=== PATIENT | female | born 1960 | race Two or more races ===

== ENCOUNTER 2020-07-28 11:20 | Emergency (ER) | payer OTHER ==
[~2020-07-28] VITALS: Ht 160 cm; Wt 116.1 kg
--- NOTE | 2020-07-28 12:01 | NUR ---
PATIENT CAME TO ER BED #4 FOR LOWER BACK/FLANK PAIN X 2 MONTHS. PATIENT DENIES DYSURIA, DENIES INJURY. THE PATIENT DENIES SOB. IN ROOM AIR AND RESPIRATION REGULAR AND UNLABORED. THE PATIENT IS CONNECTED TO A MONITOR.
[2020-07-28] MEDS ORDERED: KETOROLAC TROMETHAMINE INJ 30 MG/ML VIAL ONE (12:35)
--- NOTE | 2020-07-28 12:39 | NUR ---
PATIENT CAME BACK FROM CT.
[2020-07-28] MEDS ORDERED: KETOROLAC TROMETHAMINE INJ 60 MG/2 ML VIAL IM ONE (13:00)
[2020-07-28] MEDS ORDERED: NAPR500T6 PO (13:23)
[2020-07-28 13:40] VITALS: BP 126/71
--- NOTE | 2020-07-28 13:40 | NUR ---
Patient discharged to home in stable condition. Written and verbal after care instructions given. Patient verbalizes understanding of instruction.
== END 2020-07-28 13:40 | disposition home or self-care (01) ==
LOC: ER 11:37
DX: M54.5 Low back pain (principal); R10.9 Unspecified abdominal pain; E11.9 Type 2 diabetes mellitus without complications; Z98.890 Other specified postprocedural states; Z79.899 Other long term (current) drug therapy
CPT/HCPCS: 72131; 96372; 99284; J1885

== ENCOUNTER 2020-11-13 15:16 | Emergency (ER) | payer OTHER ==
[~2020-11-13] VITALS: Ht 152.4 cm; Wt 99.8 kg
[~2020-11-13 15:16] MED LIST: NAPR500T6 PO
[2020-11-13 15:37] VITALS: BP 140/81
[2020-11-13] MEDS ORDERED: IBUPROFEN 600 MG TABLET PO ONE (16:00)
[2020-11-13] MEDS ORDERED: IBUPROFEN 600 MG TABLET ONE (16:06)
[2020-11-13] MEDS ORDERED: TRAM50TA2 PO (17:29)
[2020-11-13] MEDS ORDERED: NAPR500T6 PO (17:29)
== END 2020-11-13 18:03 | disposition home or self-care (01) ==
LOC: ER 15:21
DX: M25.561 Pain in right knee (principal); E11.9 Type 2 diabetes mellitus without complications; E66.8 Other obesity; Z68.41 Body mass index [BMI] 40.0-44.9, adult; Z96.652 Presence of left artificial knee joint; Z98.890 Other specified postprocedural states; Z79.899 Other long term (current) drug therapy
CPT/HCPCS: 73564-TC

== ENCOUNTER 2021-04-28 09:04 | Emergency (ER) | payer OTHER ==
[~2021-04-28] VITALS: Ht 154.9 cm; Wt 108.9 kg
[~2021-04-28 09:04] MED LIST changes: +TRAM50TA2 PO
--- NOTE | 2021-04-28 09:06 | NUR ---
PT C/O R LEG PAIN X1 DAY. PT DENIES FALLING. PT IS A&OX4 AND VITAL SIGNS WITHIN NORMAL LIMITS.
[2021-04-28] MEDS ORDERED: KETOROLAC TROMETHAMINE INJ 30 MG/ML VIAL ONE (10:27)
[2021-04-28] MEDS ORDERED: KETOROLAC TROMETHAMINE INJ 30 MG/ML VIAL IM ONE (10:30)
[2021-04-28] MEDS ORDERED: HYDR-3976 GT (10:33)
[2021-04-28] MEDS ORDERED: HYDR-3972 PO (10:36)
[2021-04-28 10:54] VITALS: BP 121/71
--- NOTE | 2021-04-28 10:54 | NUR ---
Patient discharged to home in stable condition. Written and verbal after care instructions given. Patient verbalizes understanding of instruction.
== END 2021-04-28 10:54 | disposition home or self-care (01) ==
LOC: ER 09:07
DX: M17.11 Unilateral primary osteoarthritis, right knee (principal); E11.9 Type 2 diabetes mellitus without complications; Z98.890 Other specified postprocedural states
CPT/HCPCS: 73564; 96372; 99283; J1885

== ENCOUNTER 2021-08-16 15:02 | Emergency (ER) | payer OTHER ==
[~2021-08-16] VITALS: Ht 160 cm; Wt 113.4 kg
[~2021-08-16 15:02] MED LIST changes: +HYDR-3972 PO; -TRAM50TA2 PO
--- NOTE | 2021-08-16 15:16 | NUR ---
BIB SELF C/O L BREAST NUMBNESS ON AND OFF FOR 1 YEAR "ITS LIKE PULSATING". IN ROOM AIR AND DENIES SOB. RESPIRATION REGULAR AND UNLABORED. WILL CONTINUE TO MONITOR THE PATIENT.
[2021-08-16 15:56] LABS: BASOPHILS # (AUTO) 0.1 K/uL (0.0-0.2); BASOPHILS % (AUTO) 1.1 % (0.0-2.0); EOSINOPHILS % (AUTO) 3.8 % (0.0-6.0); HEMATOCRIT 44 % (33-45); HEMOGLOBIN 14.4 g/dL (11.5-14.8); LYMPHOCYTES # (AUTO) 1.8 K/uL (0.8-4.8); LYMPHOCYTES % (AUTO) 30.6 % (20.0-44.0); MEAN CORPUSCULAR HGB CONC 33 g/dl (31.0-36.0); MEAN CORPUSCULAR VOLUME 87 fL (82-100); MONOCYTES # (AUTO) 0.5 K/uL (0.1-1.30); MONOCYTES % (AUTO) 7.9 % (2.0-12.0); NEUTROPHILS # (AUTO) 3.2 K/uL (1.8-8.9); NEUTROPHILS % (AUTO) 56.6 % (43.0-81.0); PLATELET COUNT (AUTO) 247 K/uL (150-450); RED BLOOD CELL COUNT(AUTO) 5.01 MIL/uL (4.0-5.2); WHITE BLOOD COUNT (AUTO) 5.7 K/uL (4.3-11.0)
[2021-08-16 16:12] LABS: ALBUMIN 3.6 g/dL (3.4-5.0); BILIRUBIN,TOTAL 0.2 mg/dL (0.2-1.0); CALCIUM, SERUM 9.6 mg/dL (8.5-10.1); CREATININE 0.8 mg/dL (0.6-1.3); POTASSIUM 4.1 mmol/L (3.5-5.1); TOTAL PROTEIN, SERUM 7.3 g/dL (6.4-8.2)
--- NOTE | 2021-08-16 18:31 | NUR ---
GENERATOR ASSEMBLER AT BEDSIDE FOR BLOOD DRAW
--- NOTE | 2021-08-16 19:15 | NUR ---
REPORT GIVEN TO NURSE OATES FOR JESSE
--- NOTE | 2021-08-16 20:20 | NUR ---
Patient discharged to home in stable condition. Written and verbal after care instructions given. Patient verbalizes understanding of instruction. PT ambulatory with a steady gait
[2021-08-16 20:21] VITALS: BP 140/71
== END 2021-08-16 20:21 | disposition home or self-care (01) ==
LOC: ER 15:12
DX: N64.4 Mastodynia (principal); E11.9 Type 2 diabetes mellitus without complications; Z98.890 Other specified postprocedural states
CPT/HCPCS: 36415; 71045-TC; 80053-TC; 84484-TC; 85025-TC

== ENCOUNTER 2021-09-11 06:36 | Emergency (ER) | payer OTHER ==
[~2021-09-11] VITALS: Ht 170.2 cm; Wt 108.9 kg
--- NOTE | 2021-09-11 06:56 | NUR ---
BIBS C/O NAUSEA AND STOMACH ACHE X2 DAYS. PATIENT ALERT AND ORIENTED X3. AMBULATORY WITH NON LABORED BREATHING IN BED 10 AWAITING MD ZAMORA.
[2021-09-11] MEDS ORDERED: FAMOTIDINE/PF INJ 20 MG/2 ML VIAL IV ONE ×2 (07:30→07:43)
[2021-09-11] MEDS ORDERED: IV NS 0.9% 1,000 ML BAG IV ONE (07:30)
[2021-09-11] MEDS ORDERED: ACETAMINOPHEN ES 500 MG TABLET PO ONE (07:30)
[2021-09-11] MEDS ORDERED: ONDANSETRON HCL/PF 4 MG/2 ML VIAL IVP ONE (07:30)
[2021-09-11] MEDS ORDERED: MAG HYDROX/AL HYDROX/SIMETH 30 ML UDC PO ONE (07:30)
[2021-09-11 07:31] LABS: BASOPHILS % (AUTO) 0.6 % (0.0-2.0); EOSINOPHILS % (AUTO) 2.4 % (0.0-6.0); HEMATOCRIT 44 % (33-45); HEMOGLOBIN 14.3 g/dL (11.5-14.8); LYMPHOCYTES # (AUTO) 0.8 K/uL (0.8-4.8); MEAN CORPUSCULAR HGB CONC 33 g/dl (31.0-36.0); MEAN CORPUSCULAR VOLUME 87 fL (82-100); MONOCYTES # (AUTO) 0.6 K/uL (0.1-1.30); MONOCYTES % (AUTO) 12.4 % (2.0-12.0); NEUTROPHILS # (AUTO) 3.1 K/uL (1.8-8.9); NEUTROPHILS % (AUTO) 66.6 % (43.0-81.0); PLATELET COUNT (AUTO) 176 K/uL (150-450); RED BLOOD CELL COUNT(AUTO) 4.99 MIL/uL (4.0-5.2); WHITE BLOOD COUNT (AUTO) 4.6 K/uL (4.3-11.0)
[2021-09-11] MEDS ORDERED: ACETAMINOPHEN ES 500 MG TABLET ONE (07:42)
[2021-09-11] MEDS ORDERED: ONDANSETRON HCL/PF 4 MG/2 ML VIAL ONE (07:42)
[2021-09-11] MEDS ORDERED: MAG HYDROX/AL HYDROX/SIMETH 30 ML UDC ONE (07:42)
[2021-09-11 07:43] LABS: CALCIUM, SERUM 8.1 mg/dL (8.5-10.1); CREATININE 0.9 mg/dL (0.6-1.3); POTASSIUM 3.9 mmol/L (3.5-5.1)
[2021-09-11 07:49] LABS: ALBUMIN 3.4 g/dL (3.4-5.0); BILIRUBIN,DIRECT 0.1 mg/dL (0.0-0.2); BILIRUBIN,TOTAL 0.3 mg/dL (0.2-1.0)
[2021-09-11 08:33] LABS: BILIRUBIN,URINE SMALL (NEGATIVE); COLOR,URINE YELLOW (YELLOW); LEUKOCYTE ESTERASE ,URINE NEGATIVE (NEGATIVE); NITRITE, URINE NEGATIVE (NEGATIVE); PROTEIN,URINE NEGATIVE (NEGATIVE); UGLUCOSE NEGATIVE (NEGATIVE); UROBILINOGEN,URINE 0.2 EU/dL (0.2)
[2021-09-11] MEDS ORDERED: FAMO20TA8 PO (08:59)
[2021-09-11] MEDS ORDERED: TYL2T PO (08:59)
[2021-09-11] MEDS ORDERED: ONDA4TAB5 PO (08:59)
[2021-09-11 09:21] LABS: BACTERIA,URINE Few /HPF (None Seen); WBC,URINE 0-2 /HPF (0-3)
[2021-09-11 09:22] LABS: MUCUS,URINE Few /LPF (None Seen); SQUAMOUS EPITHELIAL CELL,UR Moderate /HPF (None Seen)
[2021-09-11 09:35] VITALS: BP 134/91
== END 2021-09-11 09:36 | disposition home or self-care (01) ==
LOC: ER 06:51
DX: A08.4 Viral intestinal infection, unspecified (principal); E11.9 Type 2 diabetes mellitus without complications; Z98.890 Other specified postprocedural states; Z79.899 Other long term (current) drug therapy
CPT/HCPCS: 36415; 80048; 80076; 81001; 83690; 85025; 96361; 96374; 96375; 99284; J2405; J3490; J7030

== ENCOUNTER 2021-09-24 20:58 | Emergency (ER) | payer OTHER ==
[~2021-09-24] VITALS: Ht 160 cm; Wt 116.1 kg
[~2021-09-24 20:58] MED LIST changes: +FAMO20TA8 PO; +ONDA4TAB5 PO; +TYL2T PO
--- NOTE | 2021-09-24 21:21 | NUR ---
PT BIBSELF C/O COUGH, CONGESTION, "FEVER" UPON TRIAGE TEMP 99.4. PT A/OX4. TOLERATING R/A AT 93% PT AMBULATORY.
--- NOTE | 2021-09-24 21:32 | NUR ---
PAVING FOREMAN AT PT'S BEDSIDE
[2021-09-24] MEDS ORDERED: predniSONE 20 MG TABLET ONE (22:27)
[2021-09-24] MEDS ORDERED: ACETAMINOPHEN 325 MG TABLET ONE (22:27)
[2021-09-24] MEDS ORDERED: predniSONE 20 MG TABLET PO ONE (22:30)
[2021-09-24] MEDS ORDERED: IPRATROPIUM NEB FS 0.5 MG/2.5 ML AMPUL.NEB NEB ONE (22:30)
[2021-09-24] MEDS ORDERED: ALBUTEROL FS 2.5 MG/3 ML VIAL.NEB CONTNEB ONE (22:30)
[2021-09-24] MEDS ORDERED: ACETAMINOPHEN 325 MG TABLET PO ONE (22:30)
[2021-09-24] MEDS ORDERED: IPRATROPIUM NEB FS 0.5 MG/2.5 ML AMPUL.NEB ONE (22:33)
[2021-09-24] MEDS ORDERED: ALBUTEROL FS 2.5 MG/3 ML VIAL.NEB ONE (22:33)
--- NOTE | 2021-09-24 22:35 | NUR ---
RT AT PT'S BEDSIDE FOR BREATHING TX
--- NOTE | 2021-09-24 22:45 | NUR ---
COVID AND FLU SWAB COLLECTED SENT TO LAB
[2021-09-24 22:49] LABS: BASOPHILS # (AUTO) 0.1 K/uL (0.0-0.2); BASOPHILS % (AUTO) 0.6 % (0.0-2.0); EOSINOPHILS % (AUTO) 0.1 % (0.0-6.0); HEMATOCRIT 43 % (33-45); HEMOGLOBIN 14.3 g/dL (11.5-14.8); LYMPHOCYTES % (AUTO) 6.9 % (20.0-44.0); MEAN CORPUSCULAR HGB CONC 33 g/dl (31.0-36.0); MEAN CORPUSCULAR VOLUME 87 fL (82-100); MONOCYTES # (AUTO) 0.8 K/uL (0.1-1.30); MONOCYTES % (AUTO) 5.9 % (2.0-12.0); NEUTROPHILS # (AUTO) 12.1 K/uL (1.8-8.9); NEUTROPHILS % (AUTO) 86.5 % (43.0-81.0); PLATELET COUNT (AUTO) 241 K/uL (150-450); RED BLOOD CELL COUNT(AUTO) 4.95 MIL/uL (4.0-5.2)
[2021-09-24 22:58] LABS: CALCIUM, SERUM 8.8 mg/dL (8.5-10.1); CARBON DIOXIDE 27 mmol/L (21-32); CHLORIDE 100 mmol/L (98-107); CREATININE 0.9 mg/dL (0.6-1.3); GLUCOSE 148 mg/dL (74-106); POTASSIUM 4.4 mmol/L (3.5-5.1); SODIUM SERUM 134 mmol/L (136-145); UREA NITROGEN, BLOOD 12 mg/dL (7-18)
[2021-09-25] MEDS ORDERED: KETOROLAC TROMETHAMINE INJ 30 MG/ML VIAL IV ONE (00:30)
[2021-09-25] MEDS ORDERED: IV NS 0.9% 250 ML IV ONE (00:31)
[2021-09-25] MEDS ORDERED: CT SWABBABLE VALVE TRANS SET 1 EA INFUS.SET MC ONE (00:31)
[2021-09-25] MEDS ORDERED: IOHEXOL-350 100 ML VIAL IV ONE (00:31)
[2021-09-25] MEDS ORDERED: KETOROLAC TROMETHAMINE INJ 30 MG/ML VIAL ONE (00:37)
--- NOTE | 2021-09-25 00:52 | NUR ---
RAC #18G S/L; PATENT AND INTACT. PT TAKEN TO [facility]A VIA GURNEY
--- NOTE | 2021-09-25 01:36 | NUR ---
RAC #20G S/L; PATENT & INTACT. RADIOLOGY CALLED
--- NOTE | 2021-09-25 02:00 | NUR ---
URINE COLLECTED AND SENT TO LAB
[2021-09-25 03:19] LABS: BILIRUBIN,URINE NEGATIVE (NEGATIVE); COLOR,URINE YELLOW (YELLOW); LEUKOCYTE ESTERASE ,URINE NEGATIVE (NEGATIVE); NITRITE, URINE NEGATIVE (NEGATIVE); PH,URINE 7.5 (5.0-8.0); PROTEIN,URINE NEGATIVE (NEGATIVE); UGLUCOSE NEGATIVE (NEGATIVE); UROBILINOGEN,URINE 0.2 EU/dL (0.2)
[2021-09-25] MEDS ORDERED: DOXYCYCLINE 100 MG VIAL ONE (05:21)
[2021-09-25] MEDS ORDERED: CEFTRIAXONE 1GM BAG (ER ONLY) 50 ML IV ONE (05:21)
[2021-09-25] MEDS ORDERED: CEFTRIAXONE 1GM BAG (ER ONLY) 1 GM/50 ML PIGGYBACK IV ONE (05:30)
[2021-09-25] MEDS ORDERED: DOXYCYCLINE 100 MG in IV D5W 100 ML IV SCH (05:30)
[2021-09-25] MEDS ORDERED: FUROSEMIDE 40 MG/4 ML VIAL IV ONE (09:30)
--- NOTE | 2021-09-25 10:20 | NUR ---
[facility] FAXED TO [phone]
[2021-09-25] MEDS ORDERED: FUROSEMIDE 40 MG/4 ML VIAL ONE (11:04)
--- NOTE | 2021-09-25 13:27 | NUR ---
ER NOTIFICATION LINE
--- NOTE | 2021-09-25 13:31 | NUR ---
TRANSFER: [facility] ROOM [address], DOUGLAS CHIN [phone], ACCEPTED BY DR AUSTIN, KELSEA ALS AMULANCTaryn ETA [phone]
--- NOTE | 2021-09-25 13:52 | NUR ---
report given to zoya (catarina) at [facility].
[2021-09-25 15:32] VITALS: BP 104/55
--- NOTE | 2021-09-25 15:33 | NUR ---
pt picked up by transport team. transferred to [facility].
== END 2021-09-25 15:33 | disposition short-term general hospital (02) ==
LOC: ER 21:04
DX: J96.01 Acute respiratory failure with hypoxia (principal); R05.9 Cough, unspecified; R53.81 Other malaise; R07.9 Chest pain, unspecified; R00.0 Tachycardia, unspecified; Z20.822 Contact with and (suspected) exposure to COVID-19; D72.829 Elevated white blood cell count, unspecified; E11.9 Type 2 diabetes mellitus without complications
CPT/HCPCS: 36415; 71045; 80048; 84484; 85025; 87086; 87426; 87804; 94640; 96365; 96368; 96375; 99291; C9803; J0696; J1885; J1940; J3490; J7050; J7512; Q9967; J7060

== ENCOUNTER 2021-10-29 14:23 | Emergency (ER) | payer OTHER ==
[~2021-10-29] VITALS: Ht 154.9 cm; Wt 108.9 kg
--- NOTE | 2021-10-29 15:50 | NUR ---
TO ER BED 4, NO APPARENT CHANGE IN CONDITION
--- NOTE | 2021-10-29 16:00 | NUR ---
61 YRS FEMALE C/O PAIN ON LT ARM AFTER PULLING OUT SOMTHING ONE MONTH AGO
[2021-10-29] MEDS ORDERED: CYCLOBENZAPRINE 10 MG TABLET PO ONE (16:30)
[2021-10-29] MEDS ORDERED: KETOROLAC TROMETHAMINE INJ 60 MG/2 ML VIAL IM ONE (16:30)
--- NOTE | 2021-10-29 16:30 | NUR ---
SEEN by Adrian narvaez
[2021-10-29] MEDS ORDERED: CYCLOBENZAPRINE 10 MG TABLET ONE (16:52)
[2021-10-29] MEDS ORDERED: KETOROLAC TROMETHAMINE INJ 30 MG/ML VIAL ONE (16:52)
[2021-10-29] MEDS ORDERED: TRAM50TA2 PO (17:33)
[2021-10-29] MEDS ORDERED: IBUP-1955 PO (17:33)
[2021-10-29] MEDS ORDERED: CYCL10TA9 PO (17:33)
--- NOTE | 2021-10-29 17:50 | NUR ---
D/C INSTRACTION AND RX GIVEN TO PT FULLY AND VERBLIZED UNDERSTOOD d/c home LF SHOULDER PAIN REDUCED /10
[2021-10-29 17:59] VITALS: BP 137/71
== END 2021-10-29 18:00 | disposition home or self-care (01) ==
LOC: ER 14:26
DX: S29.012A Strain of muscle and tendon of back wall of thorax, initial encounter (principal); M54.31 Sciatica, right side; E11.9 Type 2 diabetes mellitus without complications; Z79.899 Other long term (current) drug therapy; X58.XXXA Exposure to other specified factors, initial encounter; Y93.89 Activity, other specified; Y92.89 Other specified places as the place of occurrence of the external cause; Y99.8 Other external cause status
CPT/HCPCS: 73030; 73501; 96372; 99284; J1885

== ENCOUNTER 2021-11-04 21:33 | Emergency (ER) | payer OTHER ==
[~2021-11-04] VITALS: Ht 154.9 cm; Wt 136.1 kg
[~2021-11-04 21:33] MED LIST changes: +CYCL10TA9 PO; +IBUP-1955 PO; +TRAM50TA2 PO
--- NOTE | 2021-11-05 00:20 | NUR ---
TO ER BED 19. BIBS C/O COUGH, SORETHROAT AND BODY ACHE X 3 DAYS. PT STATES "SON IS COVID POSITIVE, THINKS SHE MIGHT BE EXPOSED". CONNECTED TO MONITOR. VSS. COVID PRECAUTIONS IN PLACE. AWAITING MD ZAMORA
--- NOTE | 2021-11-05 01:15 | NUR ---
COVID ANTIGEN SWAB COLLECTED AND SENT TO LAB
--- NOTE | 2021-11-05 03:21 | NUR ---
Patient discharged to home in stable condition. Written and verbal after care instructions given. Patient verbalizes understanding of instruction.
[2021-11-05 03:23] VITALS: BP 134/72
== END 2021-11-05 03:23 | disposition home or self-care (01) ==
LOC: ER 21:37
DX: U07.1 COVID-19 (principal); R73.03 Prediabetes
CPT/HCPCS: 71045; 87426; 99284; C9803

== ENCOUNTER 2022-04-21 16:55 | Emergency (ER) | payer OTHER ==
[~2022-04-21] VITALS: Ht 165.1 cm; Wt 111.1 kg
[2022-04-21 17:08] VITALS: BP 135/98
--- NOTE | 2022-04-21 18:05 | NUR ---
TO ER CHAIR FOR EVAL,NO APPARENT CHANGE IN CONDITION
--- NOTE | 2022-04-21 19:36 | NUR ---
RT CALLED FOR BREATHING TREATMENT.
--- NOTE | 2022-04-21 19:42 | NUR ---
covid+flu swab sent
[2022-04-21] MEDS ORDERED: predniSONE 20 MG TABLET ONE (19:50)
[2022-04-21] MEDS ORDERED: GUAIFENESIN/CODEINE 10 ML UDC ONE (19:50)
[2022-04-21] MEDS: IPRATROPIUM NEB FS 0.5 MG/2.5 ML AMPUL.NEB NEB ONE (19:52)
[2022-04-21] MEDS: ALBUTEROL FS 2.5 MG/3 ML VIAL.NEB NEB ONE (19:52)
[2022-04-21] MEDS: predniSONE 20 MG TABLET PO ONE (19:53)
[2022-04-21] MEDS: GUAIFENESIN/CODEINE 10 ML UDC PO PRN (19:53)
[2022-04-21] MEDS ORDERED: IPRATROPIUM NEB FS 0.5 MG/2.5 ML AMPUL.NEB ONE (19:54)
[2022-04-21] MEDS ORDERED: ALBUTEROL FS 2.5 MG/3 ML VIAL.NEB ONE (19:54)
[2022-04-21] MEDS ORDERED: ALBU8.5H8 INH (21:24)
[2022-04-21] MEDS ORDERED: OXYM15MI4 NS (21:24)
[2022-04-21] MEDS ORDERED: DEXT30SU87 PO (21:24)
--- NOTE | 2022-04-21 21:33 | NUR ---
Patient discharged to home in stable condition. Written and verbal after care instructions given. Patient verbalizes understanding of instruction.
== END 2022-04-21 21:34 | disposition home or self-care (01) ==
LOC: ER 16:57
DX: J45.901 Unspecified asthma with (acute) exacerbation (principal); J06.9 Acute upper respiratory infection, unspecified; Z20.822 Contact with and (suspected) exposure to COVID-19; E11.9 Type 2 diabetes mellitus without complications; R00.0 Tachycardia, unspecified
CPT/HCPCS: 71046; C9803

== ENCOUNTER 2022-05-29 15:02 | Emergency (ER) | payer OTHER ==
[~2022-05-29] VITALS: Ht 154.9 cm; Wt 108.9 kg
[~2022-05-29 15:02] MED LIST changes: +ALBU8.5H8 INH; +DEXT30SU87 PO; +OXYM15MI4 NS
[2022-05-29] MEDS ORDERED: LIDOCAINE 5% (PATCH) 1 EA PATCH TP SCH (15:30)
[2022-05-29] MEDS ORDERED: KETOROLAC TROMETHAMINE INJ 30 MG/ML VIAL IV ONE (15:30)
--- NOTE | 2022-05-29 15:31 | NUR ---
IV ESTABLISHED, BLOOD DRAWN SENT TO LAB.
--- NOTE | 2022-05-29 15:32 | NUR ---
URINE COLLECTED AND SENT TO LAB.
[2022-05-29] MEDS ORDERED: KETOROLAC TROMETHAMINE 15 MG/ML VIAL ONE (15:33)
[2022-05-29] MEDS ORDERED: LIDOCAINE 5% (PATCH) 1 EA PATCH TP ONE ×2 (15:35→17:57)
--- NOTE | 2022-05-29 15:45 | NUR ---
X-RAY TECH AT BEDSIDE
--- NOTE | 2022-05-29 15:48 | NUR ---
MEDICATED ORDERED. CALLED RADIOLOGY FOR CT.
--- NOTE | 2022-05-29 15:52 | NUR ---
PT TAKEN TO CT VIA RAZEEM.
[2022-05-29 16:04] LABS: BASOPHILS % (AUTO) 0.4 % (0.0-2.0); EOSINOPHILS % (AUTO) 1.8 % (0.0-6.0); HEMATOCRIT 45 % (33-45); HEMOGLOBIN 14.6 g/dL (11.5-14.8); LYMPHOCYTES # (AUTO) 2.1 K/uL (0.8-4.8); LYMPHOCYTES % (AUTO) 20.6 % (20.0-44.0); MEAN CORPUSCULAR HGB CONC 32 g/dl (31.0-36.0); MEAN CORPUSCULAR VOLUME 89 fL (82-100); MONOCYTES # (AUTO) 0.6 K/uL (0.1-1.30); MONOCYTES % (AUTO) 6.3 % (2.0-12.0); NEUTROPHILS # (AUTO) 7.2 K/uL (1.8-8.9); NEUTROPHILS % (AUTO) 70.9 % (43.0-81.0); PLATELET COUNT (AUTO) 264 K/uL (150-450); RED BLOOD CELL COUNT(AUTO) 5.09 MIL/uL (4.0-5.2); WHITE BLOOD COUNT (AUTO) 10.2 K/uL (4.3-11.0)
--- NOTE | 2022-05-29 16:23 | NUR ---
Appears comfortable reclining in bed states "feel better" Updated with plan of care
[2022-05-29 16:34] LABS: ALANINE AMINOTRANSFERASE 28 U/L (12-78); ALBUMIN 3.7 g/dL (3.4-5.0); ALKALINE PHOSPHATASE 72 U/L (46-116); ASPARTATE AMINOTRANSFERASE 16 U/L (15-37); BILIRUBIN,DIRECT 0.1 mg/dL (0.0-0.2); BILIRUBIN,TOTAL 0.2 mg/dL (0.2-1.0); CALCIUM, SERUM 8.7 mg/dL (8.5-10.1); CARBON DIOXIDE 30 mmol/L (21-32); CHLORIDE 103 mmol/L (98-107); CREATININE 0.8 mg/dL (0.6-1.3); GLUCOSE 114 mg/dL (74-106); POTASSIUM 4.2 mmol/L (3.5-5.1); SODIUM SERUM 138 mmol/L (136-145); TOTAL PROTEIN, SERUM 7.4 g/dL (6.4-8.2); UREA NITROGEN, BLOOD 11 mg/dL (7-18)
[2022-05-29 17:13] LABS: BILIRUBIN,URINE NEGATIVE (NEGATIVE); COLOR,URINE YELLOW (YELLOW); LEUKOCYTE ESTERASE ,URINE 2+ (NEGATIVE); NITRITE, URINE NEGATIVE (NEGATIVE); PROTEIN,URINE NEGATIVE (NEGATIVE); UGLUCOSE NEGATIVE (NEGATIVE); UROBILINOGEN,URINE 0.2 EU/dL (0.2)
[2022-05-29 17:31] LABS: BACTERIA,URINE 3+ /HPF (None Seen); YEAST,URINE Rare /HPF (None Seen)
[2022-05-29] MEDS ORDERED: CIPR-262 PO (17:40)
[2022-05-29] MEDS ORDERED: CIPROFLOXACIN HCL 500 MG TABLET ONE (17:57)
[2022-05-29] MEDS ORDERED: CIPROFLOXACIN HCL 500 MG TABLET PO ONE (18:00)
--- NOTE | 2022-05-29 18:38 | NUR ---
Patient discharged to home in stable condition. Written and verbal after care instructions given. Patient verbalizes understanding of instruction.
[2022-05-29 18:41] VITALS: BP 138/62
== END 2022-05-29 18:43 | disposition home or self-care (01) ==
LOC: ER 15:06
DX: N39.0 Urinary tract infection, site not specified (principal); E11.9 Type 2 diabetes mellitus without complications
CPT/HCPCS: 99285; 74176; 96374; 71045; 93005; 85025; 80048; 87086 ×2; 80076; 81001; 36415; 84484; J1885

== ENCOUNTER 2022-10-21 02:12 | Emergency (ER) | payer OTHER ==
[~2022-10-21] VITALS: Ht 157.5 cm; Wt 111.1 kg
[~2022-10-21 02:12] MED LIST changes: +CIPR-262 PO; +SULF1TAB48 PO
[2022-10-21 02:44] VITALS: BP 120/78
[2022-10-21] MEDS ORDERED: BENZ-13 PO (03:12)
--- NOTE | 2022-10-21 03:14 | NUR ---
Patient discharged to home in stable condition. Written and verbal after care instructions given. Patient verbalizes understanding of instruction.
== END 2022-10-21 03:17 | disposition home or self-care (01) ==
LOC: ER 02:14
DX: R05.9 Cough, unspecified (principal); I10 Essential (primary) hypertension; E11.9 Type 2 diabetes mellitus without complications; Z98.890 Other specified postprocedural states; Z79.899 Other long term (current) drug therapy

== ENCOUNTER 2023-12-18 10:57 | Emergency (ER) | payer MEDICARE, OTHER ==
[~2023-12-18] VITALS: Ht 154.9 cm; Wt 114.3 kg
[~2023-12-18 10:57] MED LIST changes: +BENZ-13 PO
[2023-12-18 12:09] LABS: BASOPHILS % (AUTO) 0.7 % (0.0-2.0); EOSINOPHILS # (AUTO) 0.2 K/uL (0.0-0.7); EOSINOPHILS % (AUTO) 3.2 % (0.0-6.0); HEMATOCRIT 42 % (33-45); HEMOGLOBIN 13.8 g/dL (11.5-14.8); LYMPHOCYTES # (AUTO) 1.5 K/uL (0.8-4.8); LYMPHOCYTES % (AUTO) 30.6 % (20.0-44.0); MEAN CORPUSCULAR HEMOGLOBIN 28 PG (26.0-33.0); MEAN CORPUSCULAR HGB CONC 33 g/dl (31.0-36.0); MEAN CORPUSCULAR VOLUME 86 fL (82-100); MONOCYTES # (AUTO) 0.3 K/uL (0.1-1.30); MONOCYTES % (AUTO) 6.5 % (2.0-12.0); PLATELET COUNT (AUTO) 239 K/uL (150-450); RED BLOOD CELL COUNT(AUTO) 4.89 MIL/uL (4.0-5.2); RED CELL DISTRIBUTION WIDTH 14.7 % (11.5-15.0); WHITE BLOOD COUNT (AUTO) 5.1 K/uL (4.3-11.0)
[2023-12-18 12:15] LABS: CALCIUM, SERUM 9.1 mg/dL (8.5-10.1); CARBON DIOXIDE 29 mmol/L (21-32); CHLORIDE 104 mmol/L (98-107); CREATININE 0.8 mg/dL (0.6-1.3); GLUCOSE 207 mg/dL (74-106); POTASSIUM 4.1 mmol/L (3.5-5.1); SODIUM SERUM 139 mmol/L (136-145); UREA NITROGEN, BLOOD 9 mg/dL (7-18)
[2023-12-18 12:23] LABS: NT-PRO BNP 79 pg/mL (0-125)
[2023-12-18 14:44] VITALS: BP 112/80; TEMP 98.7; O2SAT 97
== END 2023-12-18 14:52 | disposition home or self-care (01) ==
LOC: ER 10:57
DX: R07.89 Other chest pain (principal); R06.02 Shortness of breath; R00.2 Palpitations; I10 Essential (primary) hypertension; E11.9 Type 2 diabetes mellitus without complications
CPT/HCPCS: 36415; 71045-TC; 80048-TC; 83880; 84484-TC; 85025-TC

== ENCOUNTER 2024-07-06 08:34 | Emergency (ER) | payer OTHER ==
[~2024-07-06] VITALS: Ht 162.6 cm; Wt 63.5 kg
[2024-07-06 08:55] VITALS: BP 136/79; TEMP 97.9; O2SAT 96
[2024-07-06] MEDS ORDERED: PRED20TA PO (12:11)
[2024-07-06] MEDS ORDERED: IBUP-1955 PO (12:11)
[2024-07-06] MEDS ORDERED: ALBU18HF2 INH (12:11)
[2024-07-06] MEDS ORDERED: BENZ-13 PO (12:11)
== END 2024-07-06 13:11 | disposition home or self-care (01) ==
LOC: ER 08:38
DX: J40 Bronchitis, not specified as acute or chronic (principal); J06.9 Acute upper respiratory infection, unspecified; I10 Essential (primary) hypertension; E11.9 Type 2 diabetes mellitus without complications; Z79.52 Long term (current) use of systemic steroids; Z20.822 Contact with and (suspected) exposure to COVID-19
CPT/HCPCS: 71045-TC